=== PATIENT | female | born 1945 | race Caucasian/White ===

== ENCOUNTER 2018-07-10 15:05 | Inpatient (IN) | payer OTHER ==
[~2018-07-10] VITALS: Ht 152.4 cm; Wt 96.3 kg
[~2018-07-10 15:05] MED LIST: ALBU3IS INH; ALBU90OI INH; ATOR80 PO; Aspirin EC81 MG PO; CHOL10002 PO; CLON.1 PO; CLOP75 PO; FURO40 PO; Fenofibrate200 MG PO; Ferrex 150 Plu1 EACH PO; GAVILAX17 GM PO; LANS15EC PO; LOSA50 PO; METF850 PO; METO100ER PO; NIFE10 PO; POTCHL10ER PO; PRED10 PO; TRADJENTA5 MG PO; VASCEPA1 GM PO
[2018-07-10 15:32] LABS: BASOPHILS ABSOLUTE AUTO 0.04 K/mm3 (0.00-0.23); BASOPHILS PERCENT AUTO 1 % (0-2); EOSINOPHILS ABSOLUTE AUTO 0.36 K/mm3 (0.00-0.68); EOSINOPHILS PERCENT AUTO 5 % (0-6); Hematocrit 36.4 % (33.0-51.0); Hemoglobin 11.4 g/dL (11.5-16.0); IMMATURE GRAN ABSOLUTE AUTO 0.04 K/mm3 (0.00-0.10); IMMATURE GRAN PERCENT AUTO 1 % (0-1); LYMPHOCYTES ABSOLUTE AUTO 1.16 K/mm3 (0.84-5.20); LYMPHOCYTES PERCENT AUTO 16 % (21-46); MONOCYTES ABSOLUTE AUTO 0.65 K/mm3 (0.16-1.47); MONOCYTES PERCENT AUTO 9 % (4-13); Mean Corpuscular HGB 26.9 pg (26.0-34.0); Mean Corpuscular HGB Conc 31.3 g/dL (31.5-36.5); Mean Corpuscular Volume 86 fL (80-100); Mean Platelet Volume 12.4 fL (9.1-12.4); NEUTROPHILS ABSOLUTE AUTO 4.91 K/mm3 (1.96-9.15); NEUTROPHILS PERCENT AUTO 69 % (41-73); Platelet Count 237 K/mm3 (150-400); RDW Coefficient Variation 15.6 % (11.7-14.2); RDW Standard Deviation 49.6 fL (35.1-46.3); Red Blood Cell Count 4.24 M/mm3 (3.80-5.20); White Blood Cell Count 7.16 K/mm3 (4.00-11.30)
[2018-07-10 15:56] LABS: Albumin, Blood 1.7 g/dL (3.4-5.0); Albumin/Globulin Ratio 0.3 (0.8-1.8); Bilirubin, Total 0.5 mg/dL (0.1-1.0); Bun/Creatinine Ratio 18.1 (12.0-20.0); Calcium, Blood 10.7 mg/dL (8.5-10.1); Creatinine, Blood 2.65 mg/dL (0.40-1.00); Globulin, Blood 5.5 g/dL (2.2-4.0); Potassium, Blood 4.3 mmol/L (3.5-5.5); Total Protein, Blood 7.2 g/dL (6.4-8.2)
[2018-07-10] MEDS ORDERED: INSULANPEN SC (17:36)
[2018-07-10] MEDS ORDERED: POTCHL20ER PO (17:36)
--- NOTE | 2018-07-11 06:23 | NUR ---
SHIFT SUMMARY PT REPORTS DIFFICULTY SLEEPING & STATES SHE ONLY GOT ROUGHLY 1 HR OF SLEEP. PT IS AOX4 & VSS. PT DENIES PAIN OR N/V. REPORTS SOB ONLY W/EXERTION BUT DENIES ANY WHILE @REST. SPO2 @92-95% ON 2L NC WITH E/U BREATHING. EXPIRATORY WHEEZE HEARD BILATERAL UPPER LUNG LOBES, PT REPORTS COUGHING UP SMALL AMOUNT THICK MUCUS & STATES SOME IS "BLOOD TINGED." CALL LIGHT IS IN REACH & I WILL CONT TO MONITOR PT UNTIL DAY SHIFT RN ASSUMES CARE.
--- NOTE | 2018-07-11 15:44 | NUR ---
PT GAVE CONSENT FOR SECTION REPAIRER TO CARE FOR HER ON 07/12/18
--- NOTE | 2018-07-11 19:34 | NUR ---
SHIFT SUMMARY NO ACUTE CHANGES. PATIENT SCHEDULED FOR BIOPSY OF LUNG TOMORROW. HEPARIN DISCONTINUED AND PT/INR AND PTT ORDERED. PATIENT RECIVED BREATHING TREATMENTS AND CONTINUE TO HAVE SOB ON EXERTION. REPORT GIVEN TO CHRISTA CHACON.
--- NOTE | 2018-07-12 05:40 | NUR ---
SHIFT SUMMARY NO ACUTE CHANGES THIS SHIFT. PT CONTINUES TO HAVE COARSE LUNGS THROUGHOUT AND OCCASSIONAL PRODUCTIVE COUGH. PT REPORTS THAT SHE FEELS LIKE THE MUCUS IS "BREAKING UP". PT AMBULATES WELL TO THE BATHROOM. SOME SOB W/ AMBULATION BUT IMPROVING. REMAINS ON 2 L O2 NC. NO COMPLAINTS OF PAIN. PLAN FOR LUNG BIOPSY TODAY. VSS. PT RESTING IN BED AT THIS TIME.
[2018-07-12 05:48] LABS: International Normalized Ratio 1.11; Prothrombin Time Results 11.7 Sec (9.7-11.5)
--- NOTE | 2018-07-12 08:00 | NUR ---
pt laying in bed watching tv, family member laying in room at bedside. pt is a/ox3, pleasant and cooperative with care, follows commands well, denies pain at this time, lungs are very dim t/o, with occ wheeze noted, hrr, no edema noted, ppp+1, cap refill <3sec, vs stable,a febrile, iv site is clear and patent, btx4, abd round soft nontender, voids without diff, skin c/w/d except under left breast and under left side of panus she has a red rash, nystatin was applied, ha lovelace call light in reach. will be having a lung biopsy at 1100 will keep npo after breakfast.
--- NOTE | 2018-07-12 11:30 | NUR ---
pt left for lung biopsy with ct. via [facility].
--- NOTE | 2018-07-12 19:25 | NUR ---
SHIFT SUMMARY NO ACUTE CHANGES, PATIENT HAD LUNG BIOPSY TODAY. SMALL PNEUMO NOTED AFTER PROCEDURE, PATIENT DENIES SHORTNESS OF BREATH OR DIFFICULTY BREATHING. PATIENT INDEPENDENT TO BATHROOM. REPORT GIVEN TO CHRISTA CHACON.
[2018-07-13 06:08] LABS: Bun/Creatinine Ratio 19.8 (12.0-20.0); Calcium, Blood 10.5 mg/dL (8.5-10.1); Creatinine, Blood 3.08 mg/dL (0.40-1.00); Potassium, Blood 4.4 mmol/L (3.5-5.5)
--- NOTE | 2018-07-13 07:23 | NUR ---
SHIFT SUMMARY A/O X4, ABLE TO MAKE NEEDS KNOWN. COOPERATIVE WITH CARE. CALLS AND ANSWERS QUESTIONS APPROPRIATELY. NO C/O PAIN/DISCOMFORT DURING SHIFT. APPEARED TO REST MUCH OF SHIFT. REMAINS ON 2L VIA NC MAINTAINING >90%. HYPERTENSIVE, HOWEVER APPEARS TO BE ON TREND WITH PREVIOUS PRESSURES. NO ACUTE CHANGES OVERNIGHT. BED IN LOWEST POSITION. CALL LIGHT AND BELONGINGS WITHIN REACH. CONTINUED TO MONITOR OVERNIGHT. REPORT GIVEN TO DAY SHIFT RN.
--- NOTE | 2018-07-13 14:03 | NUR ---
PATIENT TRANSITIONED TO COMFORT CARE. PER CELESTE ROMERO THIS RN PROVIDED PATIENT WITH AN ENEMA, CURRENTLY WAITING FOR PATIENT TO HAVE URGE FOR BM. AT THIS TIME NO URGE. SHE IS RESTING ON HER SIDE. SLEEPING. FAMILY IN AT BEDSIDE. CONTINUING TO CHECK FOR URGE.
--- NOTE | 2018-07-13 14:15 | NUR ---
PATIENT TRANSITIONED TO COMFORT CARE. CURRENTLY HAS AN ENEMA IN PLACE WITH GOAL OF STOOL OUTPUT. FAMILY AT BEDSIDE.
--- NOTE | 2018-07-13 15:28 | NUR ---
SPOKE WITH DR. MCKEON REGARDING MEDICATION PRECAUTION PLACED BY DAVE. STATED TO DISREGARD NOTE, DC OFF OF ORDERS. THIS RN AND PREVIOUS RN HAD BEEN GIVING MEDICATIONS PER EMAR. DR. MCKEON STATED THIS WAS OKAY. PATIENT NEW DIAGNOSIS OF CANCER, PALLIATIVE CARE NURSE NOTIFIED.
--- NOTE | 2018-07-13 16:46 | NUR ---
Pt resting called to assist pt with recent new of lung cancer diagnosis. pt is upseat and angry but showing some good coping. she has a plan she wants to speak with Doctor lia and then make aplan and then advise her son. pt states only family is her son and he has recently had a cardiac event. She has a home and resoureces. She wanted a brief conversation about how to plan and types of treatment. answered her questions briefly. mostly supportive care. advised we can helpwith Advance directive, will and poa. she states she will need all of those things. She is not sure if she will need some help at home. 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 will update hospice spiritual care coordinator may need resources for discharge.
--- NOTE | 2018-07-13 18:41 | NUR ---
SHIFT SUMMARY PATIENT RECENTLY LEARNED ABOUT HER CANCER DIAGNOSIS. WAITING TO TELL HER SON. PALLIATIVE CARE AND HIM SPECIALISTS INVOLVED IN POC. CONSULT OUT TO DR. MATTA. OVERALL IN [facility], CONVERSIVE WITH STAFF.
[2018-07-14 06:03] LABS: Bun/Creatinine Ratio 24.2 (12.0-20.0); Calcium, Blood 10.3 mg/dL (8.5-10.1); Creatinine, Blood 2.97 mg/dL (0.40-1.00); Potassium, Blood 4.8 mmol/L (3.5-5.5)
--- NOTE | 2018-07-14 06:07 | NUR ---
SHIFT SUMMARY A/O X4, ABLE TO MAKE NEEDS KNOWN. COOPERATIVE WITH CARE. CALLS AND ANSWERS QUESTIONS APPROPRIATELY. NO C/O PAIN/DISCOMFORT. C/O COUGH; MEDICATED PER EMAR. REMAINS ON 2L VIA NC MAINTAINING O2 >90%. LUNGS DIMINISHED TO ALL MENON AND COARSE TO THE TOP. RESPIRATIONS EVEN AND EQUAL RISE AND FALL NOTED. HYPERTENSIVE THIS AM, HOWEVER, APPEARS ON TREND WITH PREVIOUS PRESSURES. NO ACUTE CHANGES OVERNIGHT. DID NOT APPEAR TO REST MUCH. BED IN LOWEST POSITION. CALL LIGHT AND BELONGINGS WITHIN REACH. WCTM. REPORT TO ONCOMING RN.
[2018-07-14] MEDS ORDERED: AMLO10 PO (16:53)
[2018-07-14] MEDS ORDERED: DELTASONE20 MG PO (16:57)
[2018-07-14] MEDS ORDERED: LEVO750 PO (16:58)
[2018-07-14] MEDS ORDERED: Pedi-Dri 100,0060 GM TOP (16:59)
[2018-07-14] MEDS ORDERED: ALBU3IS INH (17:00)
[2018-07-14] MEDS ORDERED: ROBITUSSIN COU237 ML PO (17:03)
[2018-07-14] MEDS ORDERED: DULERA 100 MCG/13 GM INH (17:23)
== END 2018-07-14 17:38 | disposition home or self-care (01) | DRG 180 ==
LOC: ER 15:05 → MEDS 17:29
PROVIDERS: Internal Medicine; Physician Assistant; ADMIT Internal Medicine
PROC: 0BBF3ZX Excision of Right Lower Lung Lobe, Percutaneous Approach, Diagnostic (ICD-10-PCS; principal; 2018-07-13)
DX: C34.91 Malignant neoplasm of unspecified part of right bronchus or lung (principal); J18.9 Pneumonia, unspecified organism; N18.4 Chronic kidney disease, stage 4 (severe); J44.1 Chronic obstructive pulmonary disease with (acute) exacerbation; N17.9 Acute kidney failure, unspecified; R91.8 Other nonspecific abnormal finding of lung field; I25.2 Old myocardial infarction; I25.10 Atherosclerotic heart disease of native coronary artery without angina pectoris; I12.9 Hypertensive chronic kidney disease with stage 1 through stage 4 chronic kidney disease, or unspecified chronic kidney disease; Z95.5 Presence of coronary angioplasty implant and graft; G47.33 Obstructive sleep apnea (adult) (pediatric); Z86.73 Personal history of transient ischemic attack (TIA), and cerebral infarction without residual deficits; E11.22 Type 2 diabetes mellitus with diabetic chronic kidney disease; E83.52 Hypercalcemia
CPT/HCPCS: 32405; 36415; 71045; 71046; 71250; 74176; 77012; 80048; 80053; 82947; 83036; 83880; 83970; 84484; 85025; 85610; 85730; 88305; 88341; 88342; 93005; 93010; 94640; 94644; 94667; 94668; 94760; 99285-25; C9113; J1644; J1815; J1956; J7050

== ENCOUNTER 2018-07-15 06:03 | Observation (INO) | payer OTHER ==
[~2018-07-15] VITALS: Ht 160 cm; Wt 94.3 kg
[~2018-07-15 06:03] MED LIST changes: +AMLO10 PO; +DELTASONE20 MG PO; +DULERA 100 MCG/13 GM INH; +INSULANPEN SC; +LEVO750 PO; +POTCHL20ER PO; +Pedi-Dri 100,0060 GM TOP; +ROBITUSSIN COU237 ML PO
[2018-07-15 07:26] LABS: BASOPHILS ABSOLUTE AUTO 0.03 K/mm3 (0.00-0.23); BASOPHILS PERCENT AUTO 0 % (0-2); EOSINOPHILS ABSOLUTE AUTO 0.11 K/mm3 (0.00-0.68); EOSINOPHILS PERCENT AUTO 1 % (0-6); Hematocrit 38.3 % (33.0-51.0); Hemoglobin 11.7 g/dL (11.5-16.0); IMMATURE GRAN ABSOLUTE AUTO 0.06 K/mm3 (0.00-0.10); IMMATURE GRAN PERCENT AUTO 1 % (0-1); LYMPHOCYTES PERCENT AUTO 14 % (21-46); MONOCYTES ABSOLUTE AUTO 0.76 K/mm3 (0.16-1.47); MONOCYTES PERCENT AUTO 7 % (4-13); Mean Corpuscular HGB 27.3 pg (26.0-34.0); Mean Corpuscular HGB Conc 30.5 g/dL (31.5-36.5); Mean Platelet Volume 12.3 fL (9.1-12.4); NEUTROPHILS ABSOLUTE AUTO 7.87 K/mm3 (1.96-9.15); NEUTROPHILS PERCENT AUTO 77 % (41-73); Platelet Count 239 K/mm3 (150-400); RDW Coefficient Variation 15.1 % (11.7-14.2); RDW Standard Deviation 49.4 fL (35.1-46.3); Red Blood Cell Count 4.29 M/mm3 (3.80-5.20); White Blood Cell Count 10.23 K/mm3 (4.00-11.30)
[2018-07-15 07:37] LABS: Albumin, Blood 1.8 g/dL (3.4-5.0); Albumin/Globulin Ratio 0.3 (0.8-1.8); Bilirubin, Total 0.5 mg/dL (0.1-1.0); Bun/Creatinine Ratio 25.6 (12.0-20.0); Calcium, Blood 10.9 mg/dL (8.5-10.1); Creatinine, Blood 2.77 mg/dL (0.40-1.00); Globulin, Blood 5.5 g/dL (2.2-4.0); Potassium, Blood 4.4 mmol/L (3.5-5.5); Total Protein, Blood 7.3 g/dL (6.4-8.2)
[2018-07-15 07:38] LABS: Mean Corpuscular Volume 89 fL (80-100)
--- NOTE | 2018-07-15 12:00 | NUR ---
PT ARRIVED VIA GURNEY FROM ED AT 1130. SLIDE SHEET TRANSFERRED TO BED AND SETTLED IN. SKIN CHECKED WITH BRUISING NOTED TO ARMS AND ABDOMEN. PT REPORTS DISCHARGING FROM HOSPITAL YESTERDAY WITH SON. WHEN SHE GOT HOME AND ATTEMPTED TO STEP ONTO HER RAMP AT HOME SHE WAS UNABLE TO LIFT HERSELF ONTO IT AND FELL BACKWARD REQUIRING PARAMEDICS TO BE CALLED AND COMING CARRY HER INTO HER HOME. REPORTS BEING ABLE TO WALK TO BATHROOM IN THE EVENING WITH HER SONS ASSISTANCE AND THEN SAT IN CHAIR OVER NIGHT AT WHICH TIME SHE WAS UNABLE TO GET OUT OF CHAIR AND STAND CAUSING HER TO CALL AMBULANCE SERVICE AGAIN TO BRING HER BACK TO HOSPITAL. SON AT BEDSIDE SOON AFTER ARRIVAL.
--- NOTE | 2018-07-15 18:29 | NUR ---
SHIFT SUMMARY P.T. IN TO EVALUATE PT THIS AFTERNOON. UP AND AMBULATED WITH A FWW WALKER A SHORT DISTANCE. EXERCISES GIVEN TO PT TO DO AND SHE REPORTS DOING THEM WHILE IN BED. DID NAP THIS AFTERNOON AFTER P.T. WORKED WITH HER. CURRENTLY UP IN RECLINER AFTER USING BSC. 1 PERSON ASSIST WITH GAIT BELT AND FWW. WINDED WITH ACTIVITY.
--- NOTE | 2018-07-16 05:06 | NUR ---
*SHIFT SUMMARY* PATIENT IS ALERT AND ORIENTED. PATIENT WEARING 2L NC TO MAINTATIN OXYGEN SATURATIONS. PT REQUESTED COUGH MEDICINE. ADMINISTERED ORDERED, PATIENT WAS ABLE TO GET SOME SLEEP AFTER MEDICATED. USES BSC WITH 1-2 ASSIST, PT DOES GET MILDLY EXERTED WITH TRANSFERING FROM BED TO BSC. PT STATES SHE FEELS SHE IS GETTING STRONGER BY DOING EXERCISES THAT PT TAUGHT HER AND IS DOING INDEPENDENTLY IN ROOM. CALL LIGHT WITHIN REACH, BED LOWERED AND LOCKED.
--- NOTE | 2018-07-16 18:23 | NUR ---
SHIFT SUMMARY PT UP TO CHAIR FOR MEALS AND USING BSC. REPORTS BEING TIRED THIS EVENING BUT HAS BEEN ABLE TO STAND HERSELF UP FROM CHAIR, BED AND COMMODE WITH NO HELP AND AMBULATE TO DESTINATION USING FWW. SLIGHTLY WINDED AFTER ACTIVITY BUT RECOVERS QUICKLY.
[2018-07-17 05:58] LABS: Hematocrit 35.7 % (33.0-51.0); Hemoglobin 11.4 g/dL (11.5-16.0); Mean Corpuscular HGB 27.4 pg (26.0-34.0); Mean Corpuscular HGB Conc 31.9 g/dL (31.5-36.5); Mean Platelet Volume 12.7 fL (9.1-12.4); Platelet Count 192 K/mm3 (150-400); RDW Standard Deviation 47.7 fL (35.1-46.3); Red Blood Cell Count 4.16 M/mm3 (3.80-5.20); White Blood Cell Count 11.45 K/mm3 (4.00-11.30)
[2018-07-17 06:01] LABS: Mean Corpuscular Volume 86 fL (80-100)
[2018-07-17 06:04] LABS: Bun/Creatinine Ratio 32.2 (12.0-20.0); Calcium, Blood 10.4 mg/dL (8.5-10.1); Creatinine, Blood 2.55 mg/dL (0.40-1.00); Potassium, Blood 4.7 mmol/L (3.5-5.5)
--- NOTE | 2018-07-17 06:04 | NUR ---
*SHIFT SUMMARY* PATIENT IS ALERT AND ORIENTED. ON 2L NC. COUGHED THROUGHOUT THE NIGHT AND REQUESTED THE COUGH MEDICINE, SEE EMAR. SBA TO BSC. USES CALL LIGHT APPROPRIATELY. BED LOWERED AND LOCKED.
--- NOTE | 2018-07-17 17:28 | NUR ---
PATIENT DISCHARGE: PATIENT DISCHARGED/XFR TO SNF ([facility]) THIS SHIFT. MEDICATION RECONCILIATION COMPLETED. PATIENT DEPARTED MEDICAL FLOOR VIA [facility] WHEELCHAIR AT 1720. REPORT CALLED TO BRODERICK CAMERON AT [facility].
== END 2018-07-17 17:15 ==
LOC: ER 06:03 → MEDS 06:04 → ENPENDDIS 07-17 14:30 → MEDS 07-17 17:15
PROVIDERS: Emergency Medicine; ADMIT Internal Medicine
DX: J44.0 Chronic obstructive pulmonary disease with (acute) lower respiratory infection (principal); J18.9 Pneumonia, unspecified organism; J44.1 Chronic obstructive pulmonary disease with (acute) exacerbation; J96.11 Chronic respiratory failure with hypoxia; C34.91 Malignant neoplasm of unspecified part of right bronchus or lung; I13.0 Hypertensive heart and chronic kidney disease with heart failure and stage 1 through stage 4 chronic kidney disease, or unspecified chronic kidney disease; E11.22 Type 2 diabetes mellitus with diabetic chronic kidney disease; N18.4 Chronic kidney disease, stage 4 (severe); I25.10 Atherosclerotic heart disease of native coronary artery without angina pectoris; G47.33 Obstructive sleep apnea (adult) (pediatric); Z95.5 Presence of coronary angioplasty implant and graft; Z86.73 Personal history of transient ischemic attack (TIA), and cerebral infarction without residual deficits; Z87.891 Personal history of nicotine dependence; Z88.5 Allergy status to narcotic agent; Z88.1 Allergy status to other antibiotic agents; Z88.2 Allergy status to sulfonamides; Z91.041 Radiographic dye allergy status; Z91.013 Allergy to seafood; Z79.899 Other long term (current) drug therapy; Z79.82 Long term (current) use of aspirin; Z79.02 Long term (current) use of antithrombotics/antiplatelets; Z79.4 Long term (current) use of insulin
CPT/HCPCS: 36415; 80048; 80053; 82947; 85025; 85027; 94640; 94760; 96372; 97110; 97162; 97530; 99285; G0378; J1650

== ENCOUNTER 2018-09-02 09:15 | Inpatient (IN) | payer OTHER ==
[~2018-09-02] VITALS: Ht 167.6 cm; Wt 96.1 kg
[2018-09-02 09:56] LABS: Hematocrit 37.1 % (33.0-51.0); Hemoglobin 10.7 g/dL (11.5-16.0); Mean Corpuscular HGB 27.5 pg (26.0-34.0); Mean Corpuscular HGB Conc 28.8 g/dL (31.5-36.5); Mean Corpuscular Volume 95 fL (80-100); Mean Platelet Volume 11.8 fL (9.1-12.4); Platelet Count 195 K/mm3 (150-400); RDW Coefficient Variation 15.9 % (11.7-14.2); RDW Standard Deviation 56.8 fL (35.1-46.3); Red Blood Cell Count 3.89 M/mm3 (3.80-5.20); White Blood Cell Count 7.87 K/mm3 (4.00-11.30)
[2018-09-02 10:21] LABS: Albumin, Blood 1.5 g/dL (3.4-5.0); Albumin/Globulin Ratio 0.3 (0.8-1.8); Bun/Creatinine Ratio 24.7 (12.0-20.0); Calcium, Blood 10.1 mg/dL (8.5-10.1); Creatinine, Blood 1.94 mg/dL (0.40-1.00); Globulin, Blood 4.6 g/dL (2.2-4.0); Potassium, Blood 4.4 mmol/L (3.5-5.5); Total Protein, Blood 6.1 g/dL (6.4-8.2)
[2018-09-02 10:22] LABS: BASOPHILS ABSOLUTE MAN 0.15 K/mm3 (0.00-0.23); BASOPHILS PERCENT MAN 2 % (0-2); EOSINOPHILS PERCENT MAN 0 % (0-6); LYMPHOCYTES ABSOLUTE MAN 0.47 K/mm3 (0.84-5.20); LYMPHOCYTES PERCENT MAN 6 % (21-46); MONOCYTES PERCENT MAN 0 % (4-13); NEUTROPHILS ABSOLUTE MAN 7.24 K/mm3 (1.96-9.15); SEG NEUTROPHILS PERCENT MAN 92 % (41-73); TOTAL CELLS COUNTED 100
--- NOTE | 2018-09-02 10:50 | NUR ---
Mckenzie is a 72 year old lady with a history of lung cancer. Her son at the [facility] reports that her cancer is in her lung and in her stomach. She had her first dose of chemo this past Tuesday and has become increasing weak, has a productive cough to blood-tinged sputum with SOB, and falls. This cancer diagnosis has been very recent. She knows it is incurable. Her son called 911 today because she fell and he was unable to pick her up off the floor. She was started on levaquin 250 mg PO daily x7 days yesterday per Dr. Plunkett. She is being admitted from the ER by Dr. Jaramillo. Mckenzie is not currently able to care for herself. She has been living with her son who states that he believes he may not be able to care for her any longer. Discussed code status with Mckenzie and her son. She is currently a DNR, however she would like to be able to continue treatment for her cancer if she is able to. Discussed length of life, vs. qualify of life with treatment and without cancer treatment. She states that she would like to see how she feels in the next couple of days before making any decisions. Will follow up with Mckenzie in the next few days for a review of symptoms and advanced care planning.
--- NOTE | 2018-09-02 12:15 | NUR ---
PT ARRIVED TO ROOM 305 FROM ER VIA GURNEY. PT UNABLE TO STAND, SLID OVER ONTO BED USING SLIDER SHEET. ACCOMPANIED BY SON, FINN. VITAL SIGNS OBTAINED. PT DENIES PAIN AT THIS TIME. ARRIVED WITH LEVAQUIN IV INFUSING TO RT CHEST SITE. PT AND SON ORIENTED TO ROOM AND CALL SYSTEM, CALL PETTIT IN REACH, WILL MONITOR.
--- NOTE | 2018-09-02 18:28 | NUR ---
NO ACUTE CHANGES NOTED SINCE ARRIVAL TO ROOM, WILL CONTINUE TO MONITOR AND REPORT TO ONCOMING RN
--- NOTE | 2018-09-03 02:54 | NUR ---
CHEM BG OF 44 AT 2129. GIVEN OJ. PT CONFUSED COULDN'T ANSWER QUESTIONS. CHEM BG AFTER OJ WAS 69. GIVEN YOGURT AND CAME UP TO 121. HR 118-120'S. NOTIFIED DR NASCIMENTO SHE ORDERED TELE, 1/2 AMP D5O, 5OO LR BOLUS AND D5 1/2 NS @ 100. AFTER AMP CHEM BG 164. DR NASCIMENTO SAID TO HOLD CATAPRES, METOPROLOL AND LANTUS. RR 32 AND O2 WAS 89% AT 4L SO INCREASED O2 TO 5L TO KEEP O2 AT 90%. PT KEPT REPEATING "OK" OVER AND OVER AGIAN AND NOTHING ELSE. TELE SHOWED A FIB @ 122 C OCC PVC'S AND OCC P WAVES PER SAP BASIS. INCONT OF URINE AND HAS NOT GOT OOB. NOTIFIED DR NASCIMENTO OF RESPIRATORY RATE, HR, MENTATION AND ORAL TEMP OF 100.3. SHE CHANGED PT STATUS TO PCU. GAVE PO TYLENOL. REPORT GIVEN TO ERASTO CHACON.
[2018-09-03 03:57] LABS: Hematocrit 31.4 % (33.0-51.0); Hemoglobin 9.2 g/dL (11.5-16.0); Mean Corpuscular HGB 27.5 pg (26.0-34.0); Mean Corpuscular HGB Conc 29.3 g/dL (31.5-36.5); Mean Corpuscular Volume 94 fL (80-100); Mean Platelet Volume 11.6 fL (9.1-12.4); Platelet Count 150 K/mm3 (150-400); RDW Coefficient Variation 16.1 % (11.7-14.2); RDW Standard Deviation 55.2 fL (35.1-46.3); Red Blood Cell Count 3.35 M/mm3 (3.80-5.20); White Blood Cell Count 5.75 K/mm3 (4.00-11.30)
[2018-09-03 04:12] LABS: Bun/Creatinine Ratio 25.1 (12.0-20.0); Calcium, Blood 9.6 mg/dL (8.5-10.1); Creatinine, Blood 1.87 mg/dL (0.40-1.00); Potassium, Blood 4.6 mmol/L (3.5-5.5)
[2018-09-03 04:16] LABS: PCO2 Arterial 40.5 mmHg (35-45); PO2 Arterial 60.3 mmHg (80-100); pH Blood Arterial 7.34 (7.35-7.45)
--- NOTE | 2018-09-03 05:33 | NUR ---
PT ARRIVES TO ICU 11 AT 0254 UNDER PCU STATUS. PT NOTEABLY DYSPNEIC. DOES ONLY SAY, "OK, OK" PT HAS SINCE BEEN ABLE TO ANSWER SOME QUESTIONS. HAS ASKED TO BE REPOSITIONED ONCE. O2 SATURATIONS FLUCTUATE 86-93 PERCENT ON 5 L/M. PT BREATHES MOSTLY THROUGH MOUTH, SO NASAL CANNULA PLACED TO MOUTH WHICH HAS IMPROVED OXYGEN SATURATIONS CONSISITENCY. PT HAS NOT HAD ANY COMPLAINTS OF PAIN. CALL MADE TO DR NASCIMENTO WHEREAS ORDERS RECEIVED. WILL CONTINUE TO MONITOR PT, AND WILL REPORT OFF TO ONCOMING RN.
--- NOTE | 2018-09-03 07:15 | NUR ---
RECEIVED REPORT FROM INES MAURER, AND ASSUMED CARE OF PT.
--- NOTE | 2018-09-03 09:10 | NUR ---
NURSING SUMMARY ALERT, ORIENTED TO SELF AND LOCATION, REPITITVELY SAYING "OK,", GRUNTING, ABLE TO FOLLOW SIMPLE COMMANDS. SR - ST ON THE MONITOR, 98-108, WITH FREQUENT PAC'S AND OCCASSIONAL PVC'S. LUNGS COARSE WITH RHONCHI THROUGHOUT, HARSH/COARSE COUGH WITH OCCASIONAL SCANT AMT OF THICK/CLEAR SPUTUM, YANKAUER AT BEDSIDE, RESPIRATORY TREATMENTS, 5L O2 NC, SATS GREATER THAN 90%, RR 19 -24. HYPOACTIVE BOWEL SOUNDS, POOR APPETITE, DOES NOT WANT TO EAT BREAKFAST, GAVE AM MEDICTIONS CRUSHED IN OATMEAL AND PT WAS ABLE TO CHEW AND SWALLOW WELL. ATTENDS IN PLACE, INCONTINENT OF URINE AND STOOL, ATTENDS CLEAN AT THIS TIME. REPOSITIONED PT TO FOWLERS IN PREPARATION FOR BREAKFAST, WILL CONTINUE TO REPOSTION EVERY 2 HOURS. SKIN WITH SOME BRUISES ON ARMS, SKIN TEAR ON LEFT WRIST, COCCYX REDDENED AND BLANCHABLE, YEAST PER PANNUS, USING MYCOSTATIN POWDER. RIGHT CHEST IV SITE INFUSING D5 1/2 NS AT 100 ML/HR. CHECKING BLOOD SUGARS EVERY 4 HOURS PER INSTRUCTIONS FROM NIGHT RN.
--- NOTE | 2018-09-03 09:23 | NUR ---
DR. GELLER AT BEDSIDE FOR EVALUATION. NEW ORDERS PROVIDED.
--- NOTE | 2018-09-03 10:00 | NUR ---
SON AT BEDSIDE FOR VISIT.
--- NOTE | 2018-09-03 15:52 | NUR ---
GAVE REPORT TO INES RAI, WHOM WILL ASSUME CARE OF PT WHEN TRANSFERRED TO ROOM 355.
--- NOTE | 2018-09-03 16:02 | NUR ---
PATIENT TRANSFERRED TO ROOM 355 VIA HOSPITAL BED WITH IRMA MADDEN.
--- NOTE | 2018-09-03 18:33 | NUR ---
PATIENT TRANFERED FROM ICU THIS SHIFT. SHE CONTINUES TO REPEAT "OK" OR "PLEASE" . WHEN THIS NURSE ASKS WHAT SHE CAN DO FOR THE PATIENT THE PATIENT RESPONDS WITH "GET ME OUT OF HERE" . ALL OTHER COMMUNICATION IS NONSENSICAL . SHE REFUSED MEALS AND IS UNABLE TO EXPRESS HER NEEDS. HER SON WAS CALLED TO INFORM HIM OF HER NEW LOCATION. NO CHANGES TO PATIENTS CONDITION.
--- NOTE | 2018-09-03 23:09 | NUR ---
PT HAS SLIGHT ANXIETY AND HAS FREQUENT NON PRODUCTIVE HARSH COUGH NOTED. THIS NURSE SET UP BEDSIDE SUCTION, PRN USAGE AND CALLED DR CLEMONS (PEST MANAGEMENT SUPERVISOR) REGARDING RESTLESSNESS WITH ORDERS FOR XANAX 1MG PO X 1 ONLY. RESPIRATORY THERAPY NOTIFIED AND WILL EVALUATE FOR POSSIBLE NEBULIZER TREATMENT.
--- NOTE | 2018-09-03 23:23 | NUR ---
RESPIRATORY THERAPY AT SIDE FOR NEBULIZER TREATMENT.
--- NOTE | 2018-09-04 04:45 | NUR ---
72 Y/O OBESE FEMALE RESTED IN SEMI FOWLERS POSITION ALL NIGHT, REPOSITIONED EVERY 2 HOURS BY STAFF. PTS HAD FREQUENT BOUTS COUGHING (HARSH) WITH LUNG SOUNDS WHEEZING THROUGHOUT. PT HAD RESPIRATORY TREATMENTS DURING SHIFT AND RECEIVED XANAX 1 MG X 1 DOSE FOR ANXIETY WITH RELIEF NOTED. PT ABLE TO FOLLOW ALL SIMPLE VERBAL COMMANDS. PT DENIES PAIN OR NAUSEA. PTS BED IN LOW POSITION WITH CALL LIGHT AT SIDE.
[2018-09-04 05:03] LABS: BASOPHILS PERCENT AUTO 0 % (0-2); EOSINOPHILS PERCENT AUTO 0 % (0-6); Hematocrit 32.1 % (33.0-51.0); Hemoglobin 9.3 g/dL (11.5-16.0); IMMATURE GRAN ABSOLUTE AUTO 0.06 K/mm3 (0.00-0.10); IMMATURE GRAN PERCENT AUTO 1 % (0-1); LYMPHOCYTES PERCENT AUTO 5 % (21-46); MONOCYTES PERCENT AUTO 0 % (4-13); Mean Corpuscular HGB 27.3 pg (26.0-34.0); Mean Corpuscular Volume 94 fL (80-100); Mean Platelet Volume 11.4 fL (9.1-12.4); NEUTROPHILS ABSOLUTE AUTO 4.04 K/mm3 (1.96-9.15); NEUTROPHILS PERCENT AUTO 94 % (41-73); Platelet Count 124 K/mm3 (150-400); RDW Coefficient Variation 15.8 % (11.7-14.2); RDW Standard Deviation 54.4 fL (35.1-46.3); Red Blood Cell Count 3.41 M/mm3 (3.80-5.20)
[2018-09-04 05:26] LABS: Magnesium, Blood 2.3 mg/dL (1.6-2.4)
[2018-09-04 05:27] LABS: Albumin, Blood 1.3 g/dL (3.4-5.0); Albumin/Globulin Ratio 0.3 (0.8-1.8); Bilirubin, Total 0.5 mg/dL (0.1-1.0); Bun/Creatinine Ratio 27.6 (12.0-20.0); Calcium, Blood 9.4 mg/dL (8.5-10.1); Creatinine, Blood 1.74 mg/dL (0.40-1.00); Globulin, Blood 4.4 g/dL (2.2-4.0); Potassium, Blood 5.2 mmol/L (3.5-5.5); Total Protein, Blood 5.7 g/dL (6.4-8.2)
[2018-09-04 15:17] LABS: PCO2 Arterial 41.5 mmHg (35-45); PO2 Arterial 75.5 mmHg (80-100); pH Blood Arterial 7.31 (7.35-7.45)
--- NOTE | 2018-09-04 19:39 | NUR ---
IVF'S ONGOING. PROCEDURE NURSE JUST IN THE ROOM TO START A POWERGLIDE FOR HER. THE PATIENT STILL GRUNTS AND MOANS WHEN AWAKE, BUT IS QUIET WHEN ASLEEP. O2 5L. CXR AND ABG DONE THIS AFTERNOON. TELE NSR. LAST CBG WAS UP TO 229. SBP 180'S SO BP MEDICINE GIVEN CRUSHED IN APPLESAUCE. SHE THEN ATE A SHERBET. I FED HER. PO INTAKE VERY POOR. SON VISITED THIS AM. SHE DANGLED WITH PT THIS AM BUT WAS NOT ALERT ENOUGH TO TRY TO STAND.
--- NOTE | 2018-09-05 05:45 | NUR ---
SHIFT SUMMARY PT MOANING/GRUNTING CONSTANTLY, VERY LITTLE SLEEP TONIGHT. AOX2, UNAWARE OF WHY SHE IS IN HOSPITAL OR THE DATE, HOWEVER FOLLOWS DIRECTIONS. SPEECH IS MUMMBLED/GARBLED @TIMES. VSS. DENIES NAUSEA OR SOB @REST, YET APPEARS DYSPNIC. REPORTED PAIN ALLOVER BODY THIS AM & WAS MEDICATED 1X W/TYLENOL PER ORDERS. LUNGS SOUND COURSE T/O LOBES, RESPIRATORY THERAPY CHANGED PT TO 7L O2 W/OXIMIZER LAST NIGHT DUE SPO2 @84% ON 5L NC. HAS A HARSH, MOIST, OCCASIONALLY PRODUCTIVE COUGH. TURNED & REPOSITIONED Q2H TO PREVENT SKIN BREAKDOWN. LAST NIGHT PT STATED, "I JUST WANT TO , HELP ME, JUST MAKE IT STOP." CALL LIGHT IS IN REACH & I WILL CONTINUE TO MONITOR.
--- NOTE | 2018-09-05 10:10 | NUR ---
Rec'd a call from Jeniffer pt's nurse, this morning. Jeniffer states that Mckenzie told the previous shift nurse that she was tired and wanted to . Met with Mckenzie and Toño in her room this morning. Asked Mckenzie if she felt like she was ready to . Mckenzie reports that she wasn't feeling well when she said that and she denies feeling like she wants to at this time. Toño stated that he has never heard Mckenzie expressing wishes to before today. Mckenzie reports that she slept poorly and is very tired. She wants to continue current treatments to improve. If she continues to get weaker or declines she is willing to consider comfort care options at that time. Toño stated that he would like to see how she does over the next couple of days. He stated that whatever decision Mckenzie makes for treatment, he will respect. He states "I've had my mom in my life for 50 years, if it's time for her to go, then I will let her go." PC will continue to follow for symptom management and advanced care planning. JORDYN is working with Toño on placement options for Mckenzie.
--- NOTE | 2018-09-05 13:20 | NUR ---
M<et. in bed her nurse in the room attending the pt. in her needs. Pt. is doing much better encoursged pt and prayed raquel jaramillo.
--- NOTE | 2018-09-05 18:08 | NUR ---
SOB 1800 PT FOUND TO BE DIAPHORETIC AND SOB, O2 TURNED TO 12L TO SUSTAIN 90% OXYMIZER, HOB ELEVATED, EUGENIA IN RT CALLED-GAVE PT BREATHING TX, DR GELLER CALLED, GAVE VERBAL FOR IV LASIX-ADMINISTERED, HR 110-120,S. REMAINED W/PT AFTER ADMIN, HOB AT 60 DEGREES, PTS EYES ARE CLOSED NOW (1811) O2 IS 92 ON 12L, HR 91, WILL CONT TO MONTIOR UNTIL REPORT GIVEN TO CHRISTA RN.
--- NOTE | 2018-09-05 18:39 | NUR ---
AMA [address] TORRES, PT STATED SHE WAS LEAVING AMA CHARGE NURSE REMOVED IV, PT WALKED OUT FOR DC @ 1841.
--- NOTE | 2018-09-06 07:26 | NUR ---
alert, hard to assess orintation due to anxiety r/breathing and sob, rt, breathing treatments and hob elevated, mouth breather, call light in reach, saline locked port in L upper arm walking rounds completed with day staff
[2018-09-06 09:05] LABS: BASOPHILS PERCENT AUTO 0 % (0-2); EOSINOPHILS PERCENT AUTO 0 % (0-6); Hematocrit 36.2 % (33.0-51.0); Hemoglobin 10.7 g/dL (11.5-16.0); Mean Corpuscular HGB 27.8 pg (26.0-34.0); Mean Corpuscular HGB Conc 29.6 g/dL (31.5-36.5); Mean Corpuscular Volume 94 fL (80-100); Mean Platelet Volume 11.9 fL (9.1-12.4); Platelet Count 74 K/mm3 (150-400); RDW Coefficient Variation 15.3 % (11.7-14.2); RDW Standard Deviation 52.8 fL (35.1-46.3); Red Blood Cell Count 3.85 M/mm3 (3.80-5.20); White Blood Cell Count 2.06 K/mm3 (4.00-11.30)
[2018-09-06 09:25] LABS: Magnesium, Blood 2.2 mg/dL (1.6-2.4)
[2018-09-06 09:36] LABS: IMMATURE GRAN ABSOLUTE AUTO 0.01 K/mm3 (0.00-0.10); IMMATURE GRAN PERCENT AUTO 1 % (0-1); LYMPHOCYTES ABSOLUTE AUTO 0.13 K/mm3 (0.84-5.20); LYMPHOCYTES PERCENT AUTO 6 % (21-46); MONOCYTES ABSOLUTE AUTO 0.01 K/mm3 (0.16-1.47); MONOCYTES PERCENT AUTO 1 % (4-13); NEUTROPHILS ABSOLUTE AUTO 1.91 K/mm3 (1.96-9.15); NEUTROPHILS PERCENT AUTO 93 % (41-73)
[2018-09-06 09:38] LABS: Albumin/Globulin Ratio 0.4 (0.8-1.8); Bilirubin, Total 0.9 mg/dL (0.1-1.0); Bun/Creatinine Ratio 38.6 (12.0-20.0); Creatinine, Blood 1.45 mg/dL (0.40-1.00); Globulin, Blood 4.6 g/dL (2.2-4.0); Potassium, Blood 5.2 mmol/L (3.5-5.5); Total Protein, Blood 6.6 g/dL (6.4-8.2)
--- NOTE | 2018-09-06 13:46 | NUR ---
PATIENT ADAMENTLY REFUSING FOR HER POWERGLIDE DRESSING TO BE CHANGED. IT WAS PLACED 09/04/18. I EDUCATED HER ON WHY IT IS IMPORTANT TO CHANGE THESE BUT SHE CONTINUES TO REFUSE. WILL REATTEMPT LATER THIS AFTERNOON. NOTIFIED PATIENTS PRIMARY RN
--- NOTE | 2018-09-06 14:46 | NUR ---
Pt. is in bed , she reports not doing well, gave spiritual and emotional support and offered prayers.
--- NOTE | 2018-09-06 18:32 | NUR ---
SHIFT SUMMARY PT WITH DYSPNEA THIS MORNING ON ASSESSMENT WITH RAPID SHALLOW BREATHING AND UNABLE TO SPEAK MORE THAN 1 OR 2 WORDS WITHOUT NEEDING TO REST A MOMENT. RT SUGGESTED CPAP/BIPAP AND THEN ORDERED BY MD. RESP IMPROVED THROUGH DAY WITH MORE EVEN AND LESS LABORED LUL. PT ALSO REPORTS SHE FEELS LIKE SHE IS BREATHING BETTER. HAS REMAINED ON IT SINCE APPLIED BY RT EARLIER IN DAY. TURNED AND CHANGED REGULARLY. SON AT BEDSIDE EARLIER IN DAY.
[2018-09-07 05:26] LABS: Hematocrit 32.7 % (33.0-51.0); Hemoglobin 9.8 g/dL (11.5-16.0); Mean Corpuscular HGB 27.7 pg (26.0-34.0); Mean Corpuscular Volume 92 fL (80-100); Mean Platelet Volume 12.1 fL (9.1-12.4); RDW Coefficient Variation 15.2 % (11.7-14.2); RDW Standard Deviation 51.6 fL (35.1-46.3); Red Blood Cell Count 3.54 M/mm3 (3.80-5.20); White Blood Cell Count 1.18 K/mm3 (4.00-11.30)
[2018-09-07 05:33] LABS: Platelet Count 43 K/mm3 (150-400)
[2018-09-07 05:54] LABS: Albumin, Blood 1.9 g/dL (3.4-5.0); Albumin/Globulin Ratio 0.5 (0.8-1.8); Bilirubin, Total 0.6 mg/dL (0.1-1.0); Bun/Creatinine Ratio 43.4 (12.0-20.0); Creatinine, Blood 1.43 mg/dL (0.40-1.00); Globulin, Blood 4.2 g/dL (2.2-4.0); Total Protein, Blood 6.1 g/dL (6.4-8.2)
[2018-09-07 05:59] LABS: BASOPHILS PERCENT MAN 0 % (0-2); EOSINOPHILS PERCENT MAN 0 % (0-6); LYMPHOCYTES ABSOLUTE MAN 0.07 K/mm3 (0.84-5.20); LYMPHOCYTES PERCENT MAN 6 % (21-46); MONOCYTES PERCENT MAN 0 % (4-13); SEG NEUTROPHILS PERCENT MAN 94 % (41-73); TOTAL CELLS COUNTED 100
--- NOTE | 2018-09-07 07:31 | NUR ---
ALERT to self and place, bipap working much better than rebrether, call light in reach, saline locked, walking rounds completed with day staff
--- NOTE | 2018-09-07 13:17 | NUR ---
Metpt. lying in bed and the spouse in the room on a visit, pt. seems to be doing much better ,encouraged pt. and prayed for her
--- NOTE | 2018-09-07 18:11 | NUR ---
SHIFT SUMMARY RESPIRATORY THERAPY REDUCED O2 ADMIN TO 6 LPM W/OXYMIZER, INSTEAD OF BIPAP. PT IS SATURATING 94%. PT ADMITTED FOR MARTA/CKD. PT IS DNR. SHE HAS A POSITIONAL POWERGLIDE IN LEFT UPPER ARM. PLATELETS LAB WAS CRITICAL LOW THIS MORNING ( FELT THAT WAS DUE TO CHEMO). PT RECENTLY DX W/LUNG CANCER. PT WAS SLEEPING THROUGHOUT SHIFT. AROUSABLE, BUT DROWSY THROUGHOUT. PT NEEDS MEDS CRUSHED IN APPLESAUCE AND THEN ORAL CARE SHOULD BE PERFORMED. 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 TELEMETRY WAS DC'D TODAY. GUIFFANESEN WAS CHANGED TO LIQUID AT THE ER ORAL TABLETS COULD NOT BE CRUSHED. PT IS INCONTINENT.
--- NOTE | 2018-09-08 05:23 | NUR ---
VSS, AFEBRILE, CONFUSED, PT UNCOOPERATIVE WITH CARE, REFUSING MEDS, PULLS AT TUBES/LINES, OCC. MAKES EYE CONTACT BUT THEN LOOKS AWAY AND WILL NOT TAKE HER MEDS. NO COMPLAINTS. SLEPT FITFULLY, OCC HARSH COUGH, NON-VERBAL AT THIS TIME, WILL REPORT TO ON-COMING SHIFT
[2018-09-08 08:06] LABS: BASOPHILS PERCENT AUTO 0 % (0-2); EOSINOPHILS PERCENT AUTO 0 % (0-6); Hematocrit 32.9 % (33.0-51.0); Hemoglobin 9.8 g/dL (11.5-16.0); IMMATURE GRAN ABSOLUTE AUTO 0.01 K/mm3 (0.00-0.10); IMMATURE GRAN PERCENT AUTO 1 % (0-1); LYMPHOCYTES ABSOLUTE AUTO 0.12 K/mm3 (0.84-5.20); LYMPHOCYTES PERCENT AUTO 6 % (21-46); MONOCYTES ABSOLUTE AUTO 0.01 K/mm3 (0.16-1.47); MONOCYTES PERCENT AUTO 1 % (4-13); Mean Corpuscular HGB 27.1 pg (26.0-34.0); Mean Corpuscular HGB Conc 29.8 g/dL (31.5-36.5); Mean Corpuscular Volume 91 fL (80-100); NEUTROPHILS ABSOLUTE AUTO 1.83 K/mm3 (1.96-9.15); NEUTROPHILS PERCENT AUTO 93 % (41-73); RDW Coefficient Variation 15.5 % (11.7-14.2); RDW Standard Deviation 51.5 fL (35.1-46.3); Red Blood Cell Count 3.62 M/mm3 (3.80-5.20); White Blood Cell Count 1.97 K/mm3 (4.00-11.30)
[2018-09-08 08:13] LABS: Platelet Count 40 K/mm3 (150-400)
[2018-09-08 08:31] LABS: Albumin, Blood 1.8 g/dL (3.4-5.0); Albumin/Globulin Ratio 0.4 (0.8-1.8); Bilirubin, Total 0.5 mg/dL (0.1-1.0); Bun/Creatinine Ratio 53.8 (12.0-20.0); Calcium, Blood 10.2 mg/dL (8.5-10.1); Creatinine, Blood 1.45 mg/dL (0.40-1.00); Globulin, Blood 4.3 g/dL (2.2-4.0); Potassium, Blood 5.1 mmol/L (3.5-5.5); Total Protein, Blood 6.1 g/dL (6.4-8.2)
--- NOTE | 2018-09-08 13:40 | NUR ---
Pt.is in bed mresting and is doing much better.,encouraged and offered prayers and spiritual support.
--- NOTE | 2018-09-08 15:41 | NUR ---
Pt seems to be alert, oriented. She is on bipap and unable to take the mask off at this time due to shortness of breath. Son, Toño is at bedside. Reviewed current illness with patient and Toño. I asked if she would like to be made comfort care at this time. She shakes her head no. She denies pain, anxiety. Spoke to Toño out in the hallway. He is aware of her poor prognosis. He states that he knows the point in which he must make her comfort care, based on his earlier conversations with his mother and her advance directive. He is willing to put her on comfort care once is it evident that she is suffering and she no longer can make her own decisions. Dr. Flores joined us in the hallway and reinforced poor prognosis. Her tumor has enlarged. Pt at high risk for demise without comfort measures order set. This is an expected , she may not make it out of the hospital.
--- NOTE | 2018-09-08 17:09 | NUR ---
SHIFT SUMMARY PT ADMITTED FOR MARTA. DNR. PT'S DIET CHANGED TO MECH-SOFT TODAY IT WAS OBSERVED THAT THE PT WAS WILLING TO EAT MORE FOOD ONLY IF SOFT. CRITICAL LOW PLATELETS LAB THIS MORNING OF 40. PT PULLED AT TUBING ONLY 2X'S TODAY. MEDICATION IS NOW AVAILABLE IN THE [facility] FOR ANXIETY/RESTLESSNESS. PT REFUSED PO MEDS BEFORE THIS SHIFT BUT ACCEPTED THEM DURING THIS SHIFT. PT'S SON ASKED ME FOR A PALLIATIVE CARE CONSULT TO DISCUSS COMFORT CARE. PALLIATIVE CARE ARRIVED AND TALKED W/PATIENT AND SON. NO NEW ORDERS OR CHANGE IN CARE AT THIS TIME.
--- NOTE | 2018-09-09 05:24 | NUR ---
VSS, AFEBRILE, PT SLEPT WELL THIS SHIFT, STILL REFUSING PO MEDS AT TIMES, MAKES PROTESTING SOUNDS DURING PERSONAL CARE, OTHERWISE NO SIGNIFICANT CHANGES NOTED, PT IS STABLE AT THIS TIME. WILL REPORT TO ON-COMING SHIFT.
[2018-09-09 05:33] LABS: BASOPHILS PERCENT AUTO 0 % (0-2); EOSINOPHILS PERCENT AUTO 0 % (0-6); Hematocrit 30.7 % (33.0-51.0); Hemoglobin 9.2 g/dL (11.5-16.0); IMMATURE GRAN ABSOLUTE AUTO 0.01 K/mm3 (0.00-0.10); IMMATURE GRAN PERCENT AUTO 1 % (0-1); LYMPHOCYTES ABSOLUTE AUTO 0.13 K/mm3 (0.84-5.20); LYMPHOCYTES PERCENT AUTO 9 % (21-46); MONOCYTES ABSOLUTE AUTO 0.05 K/mm3 (0.16-1.47); MONOCYTES PERCENT AUTO 3 % (4-13); Mean Corpuscular HGB 27.6 pg (26.0-34.0); Mean Corpuscular Volume 92 fL (80-100); Mean Platelet Volume 12.9 fL (9.1-12.4); NEUTROPHILS ABSOLUTE AUTO 1.31 K/mm3 (1.96-9.15); NEUTROPHILS PERCENT AUTO 87 % (41-73); RDW Coefficient Variation 15.8 % (11.7-14.2); RDW Standard Deviation 53.3 fL (35.1-46.3); Red Blood Cell Count 3.33 M/mm3 (3.80-5.20)
[2018-09-09 05:39] LABS: Platelet Count 37 K/mm3 (150-400)
--- NOTE | 2018-09-09 05:54 | NUR ---
CRIT LAB VALUE: PLT = 37. HOSPITALIST AWARE, NO NEW ORDERS NOTED.
[2018-09-09 05:58] LABS: Albumin, Blood 1.8 g/dL (3.4-5.0); Albumin/Globulin Ratio 0.5 (0.8-1.8); Bilirubin, Total 0.5 mg/dL (0.1-1.0); Bun/Creatinine Ratio 61.1 (12.0-20.0); Creatinine, Blood 1.44 mg/dL (0.40-1.00); Globulin, Blood 3.8 g/dL (2.2-4.0); Potassium, Blood 5.3 mmol/L (3.5-5.5); Total Protein, Blood 5.6 g/dL (6.4-8.2)
--- NOTE | 2018-09-09 18:06 | NUR ---
SHIFT SUMMARY PATIENT SHOWS NO SIGNS OF PAIN OR DISTRESS. PATIENT HAS BEEN RESPONSIVE ONLY TO PHYSICAL STIMULI TODAY. PATIENT UNABLE TO HAVE PO INTAKE OR ORAL MEDS TODAY DUE TO LEVEL OF CONSCIOUSNESS. BIPAP AT 5 LITERS TO MAINTAIN OXYGEN SATURATION OVER 90%. SON AT BEDSIDE MOST OF SHIFT. CALL LIGHT INR EACH, WILL CONTINUE TO MONITOR.
--- NOTE | 2018-09-10 05:39 | NUR ---
SHIFT SUMMARY PT VERY DROWSY THIS EVENING. WAKING APPROX 0300, APPEARING MORE ALERT. STILL ONLY ANSWERING SIMPLE YES OR NO QUESTIONS, AND DOES NOT ALWAYS ANSWER WHEN ASKED. BIPAP ON THROUGHOUT THE NIGHT WITH 7-10 L O2 BLEED IN REQUIRED TO KEEP O2 SATS > 90%. PT INCONTINENT. TURNED PT AND CHANGED ATTENDS NEEDED. REDNESS IN ABD AND GROIN FOLDS, POWDER APPLIED. MEPILEX TO COCCYX CLEAN, DRY, AND INTACT. SMALL SKIN TEARS AND BRUISING SCATTERED THROUGHOUT. LABS DRAWN FROM POWERGLIDE AND CAPS CHANGED. VSS. WILL CONTINUE TO MONITOR.
[2018-09-10 05:40] LABS: BASOPHILS PERCENT AUTO 0 % (0-2); EOSINOPHILS PERCENT AUTO 0 % (0-6); Hematocrit 28.5 % (33.0-51.0); Hemoglobin 8.6 g/dL (11.5-16.0); IMMATURE GRAN ABSOLUTE AUTO 0.08 K/mm3 (0.00-0.10); IMMATURE GRAN PERCENT AUTO 4 % (0-1); LYMPHOCYTES ABSOLUTE AUTO 0.21 K/mm3 (0.84-5.20); LYMPHOCYTES PERCENT AUTO 10 % (21-46); MONOCYTES ABSOLUTE AUTO 0.16 K/mm3 (0.16-1.47); MONOCYTES PERCENT AUTO 8 % (4-13); Mean Corpuscular HGB 27.8 pg (26.0-34.0); Mean Corpuscular HGB Conc 30.2 g/dL (31.5-36.5); Mean Corpuscular Volume 92 fL (80-100); NEUTROPHILS ABSOLUTE AUTO 1.57 K/mm3 (1.96-9.15); NEUTROPHILS PERCENT AUTO 78 % (41-73); NRBC ABSOLUTE 0.03 K/mm3 (0.00-0.02); NRBC Auto 1.5 /100 WBC (0.0-0.2); Platelet Count 69 K/mm3 (150-400); RDW Coefficient Variation 15.9 % (11.7-14.2); RDW Standard Deviation 54.2 fL (35.1-46.3); Red Blood Cell Count 3.09 M/mm3 (3.80-5.20); White Blood Cell Count 2.02 K/mm3 (4.00-11.30)
[2018-09-10 05:42] LABS: Mean Platelet Volume 13.2 fL (9.1-12.4)
[2018-09-10 06:08] LABS: Bun/Creatinine Ratio 65.6 (12.0-20.0); Calcium, Blood 9.7 mg/dL (8.5-10.1); Creatinine, Blood 1.6 mg/dL (0.40-1.00); Potassium, Blood 5.4 mmol/L (3.5-5.5)
[2018-09-10 14:27] LABS: PCO2 Arterial 44.4 mmHg (35-45); PO2 Arterial 72.9 mmHg (80-100); pH Blood Arterial 7.34 (7.35-7.45)
[2018-09-10 15:29] LABS: International Normalized Ratio 1.24; Prothrombin Time Results 12.9 Sec (9.7-11.5)
--- NOTE | 2018-09-10 16:25 | NUR ---
Clinical Visit: Mckenzie does not look well. She is less responsive today. Discussed with son, Toño. At this point, he does not want to change the care plan. Reviewed symptoms, medication, reviewed with nursing.
--- NOTE | 2018-09-10 16:26 | NUR ---
Clinical Visit: Pt appears to be doing a little better today. She is on bipap, but she is able to communicate by nodding or shaking her head. She expresses that she does not want comfort care at this point, denies pain, denies anxiety. Spoke to Jessica, pt's nurse. She is concerned because she has found the pt's POLST form on the physical chart, in which she is a full code. Call placed to son, explained that I would like him to help with a new POLST form when he comes in tomorrow. He is agreeable and confirms DNR status. Reviewed with Dr. Camargo. She states that she is not expecting the patient to go home, she is expected to in the hospital. Toño is aware of this, per discussion taking place yesterday. Will remain available and work on getting a new POLST signed sometime tomorrow.
--- NOTE | 2018-09-10 18:30 | NUR ---
SHIFT SUMMARY PT ALERT, NONVERBAL. PT NODS YES AND NO. PT RESTING IN BED DURING SHIFT. REPOSITIONED FOR COMFORT AND ATTENDS CHANGES. PT ON BIPAP WITH 7L O2 BLEED IN, PT DESATS TO 80'S THIS AM WITH MOVEMENTS. TACHYPNEIC. PT RECEIVING BREATHIGN TREATMENTS PER RT AND MEDICATED X1 FOR AIRHUNGER. PT DENIES PAIN AND N.V T/O SHIFT. PT RECEIVING IV STEROIDS AND ANTIBIOTIC. PT ASP RISK AND REFUSING MEALS. ABG COMPLETED DURING SHIFT. ELEVATED HR, BP AND RESP, DR PASTOR NOTIFIED. PT HAD TEMP THIS AM, MEDICATED WITH 1 CA TYLENOL. PLANS FOR THORACENTESIS TOMORROW. WILL CONTINUE TO MONITOR UNTIL REPORT GIVEN TO ONCOMING RN.
--- NOTE | 2018-09-11 04:39 | NUR ---
SHIFT SUMMARY PT MUCH MORE ALERT THIS EVENING. CONTINUES TO ONLY ANSWER TO SIMPLE YES OR NO QUESTIONS. PLACED OXYMIZER ON INTERMITTENTLY AND DID ORAL CARE. PT ALSO NODING YES WHEN ASKED IF SHE WAS THIRSTY. PT UNABLE TO SUCK THE WATER UP THE STRAW. WATER FED BY TEASPOON AND PT TOLERATED WELL. PT REFUSED ANY FOOD. WHEN NOT DRINKING OR HAVING ORAL CARE DONE BIPAP REMAINED ON THROUGHOUT THE NIGHT. 7 L 02 BLEED IN. O2 SATS IN THE MID 90'S. HR IMPROVED THROUGHOUT THE NIGHT STARTING AT THE 110'S AT START OF SHIFT AND 105 THIS AM. PT INCONTINENT. TURNED AND CHANGED NEEDED. VSS. OTHERWISE NO ACUTE CHANGES. WILL CONTINUE TO MONITOR.
--- NOTE | 2018-09-11 16:06 | NUR ---
Attempted to visit with Mckenzie this afternoon. She is currently resting on bipap with 5 L bleed in O2. She had a thoracentesis done earlier today and fluid was sent for analysis. Toño is not currently visiting. Asked ns to contact PC when he comes in for another visit. Mckenzie did briefly open eyes when her name was called, however she closed her eyes and didn't answer any of my questions. Will allow her to rest at this time. She appears to not be in any distress at this time. PC will plan to visit with pt and her son tomorrow. Fluid from thoracentesis was sent to lab for analysis. Will review lab results when available.
--- NOTE | 2018-09-11 18:31 | NUR ---
SHIFT SUMMARY 72 YR OLD FEMALE. ADMITTED FOR [facility]A. DNR. SHE IS ACHS. 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 POWERGLIDE IS POSITIONAL, RUNNING D5 @ 100 ML/HR. THORACENTESIS GIAN 600 ML OUT. PT IS A LIFT PT. SHE IS INCONTINENT. SHE HAS YEAST IN HER ABDOMINAL, PELVIC FOLDS AND UNDER BREAST. ELEVATED HANDS TODAY DUE TO EDEMA. PT REFUSING MEDS, SOMNOLENT, SLEEPY ALL DAY. ONE WORD ANSWERS IN THE AM, NO RESPONSES THIS EVENING.
[2018-09-12 06:35] LABS: Hematocrit 23.2 % (33.0-51.0); Hemoglobin 6.9 g/dL (11.5-16.0); Mean Corpuscular HGB 27.4 pg (26.0-34.0); Mean Corpuscular HGB Conc 29.7 g/dL (31.5-36.5); Mean Corpuscular Volume 92 fL (80-100); NRBC ABSOLUTE 0.17 K/mm3 (0.00-0.02); NRBC Auto 3.7 /100 WBC (0.0-0.2); Platelet Count 167 K/mm3 (150-400); RDW Coefficient Variation 15.5 % (11.7-14.2); RDW Standard Deviation 51.8 fL (35.1-46.3); Red Blood Cell Count 2.52 M/mm3 (3.80-5.20); White Blood Cell Count 4.55 K/mm3 (4.00-11.30)
[2018-09-12 06:40] LABS: Mean Platelet Volume 13.1 fL (9.1-12.4)
[2018-09-12 07:02] LABS: Albumin, Blood 1.5 g/dL (3.4-5.0); Anion Gap 6 mmol/L (6-16); Blood Urea Nitrogen 127 mg/dL (8-24); Bun/Creatinine Ratio 67.6 (12.0-20.0); CO2, Blood 24 mmol/L (21-32); Chloride, Blood 112 mmol/L (98-108); Creatinine, Blood 1.88 mg/dL (0.40-1.00); Glomerular Filtration Rate 28 (60-); Glucose, Blood 299 mg/dL (70-99); Phosphorus, Blood 2.5 mg/dL (2.5-4.9); Potassium, Blood 5.8 mmol/L (3.5-5.5); Sodium, Blood 142 mmol/L (136-145)
--- NOTE | 2018-09-12 07:23 | NUR ---
Rn summary: Patient has rested all night. Pt has opened eyes to verbal stimuli and touch but has not spoken. Pt shuts eyes almost immediately. Pt is incontinent of urine. Pt is unable to take oral meds, she is not awake enough. Pt has been on Bipap all shift at 5 liters. O2 sats have been in the 92-96% range. Pt does have some yeast under breasts and in groin folds, area cleaned and nystatin applied. Powerglide to CASSANDRA vic easily for blood this am. Iv fluids decreased to 50 cc hr per order at beginning of shift. Pt repositioned. No changes during the night.
--- NOTE | 2018-09-12 11:35 | NUR ---
Visited with Toño and Mckenzie this morning. RT is at bedside and placing her back on the bipap machine per her request. Toño states she is tired. Attempted to include Mckenzie in this conversation and allow her to express her wishes and feelings, however she did not want to engage in the discussion. Toño states "She's getting tired" when asked how he felt she was doing. Toño is open to listening to information about comfort care, Mckenzie did not want to engage. Toño wants to respect Mckenzie's wishes. He stated to me that he knew that she was not going to get any better. He said "We were told she could have 2-5 years to live with treatment." He verbalizes that this will not happen now as she has failed her chemotherapy treatment. Offered emotional support to pt and son. Explained to Toño that if Mckenzie becomes unable to make a decision re: her care that he will need to step in and make a decision for her. He verbalizes understanding of this. PC will continue to follow for symptom management and support for making decisions re: trajectory of care.
--- NOTE | 2018-09-12 14:46 | NUR ---
Pt. is inn bed resting spouse in the room reports that pt. is doing much better, offered prayers for the pt.
--- NOTE | 2018-09-12 18:12 | NUR ---
SHIFT SUMMARY 72 YR OLD FEMALE. DNR. ADMITTED FOR [facility]A. ON 5 LPM BIPAP/OXYMIZER (DEPENDING ON TOLERANCE). PT IS RESPONSIVE INTERMITTENTLY, THEN ONLY YES/NO ANSWERS OR HEAD NODS. MOSTLY SLEEPING. REFUSING FOODS/MEDS. POSITIONAL POWERGLIDE IN LEFT UPPER ARM. 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 LIFT PT - MORBIDLY OBESE. YEAST IN SKIN FOLDS OF ABDOMEN, GROIN, UNDER BREASTS. D5 IS RUNNING AND 50 ML/HR. SHE RECEIVED ONE UNIT OF PRBC TODAY. RESPONDED WELL. SHE IS ACHS AND HAS REQUIRED INSULIN COVERAGE
--- NOTE | 2018-09-13 03:51 | NUR ---
SHIFT SUMMARY PATIENT HAD NO ACUTE CHANGES OBSERVED THIS SHIFT. UNRESPONSIVE WITH EYES OPEN. YES/NO RESPONSE AT TIMES. REFUSING MEDICATION. ON 5L O2 OXIMIZER WITH CONTINUOUS PULSE OXIMETRY STATING IN THE 90"S. POWERGLIDE CASSANDRA INTACT. D5 INFUSING AT 50 mL/HR. CBG 26O, AC/HS. LIFT PATIENT-MORBID OBSESE. CALL LIGHT IN REACH. BED IN LOWEST POSITION. WILL CONTINUE TO MONITOR UNTIL DAY SHIFT NURSE ASSUMES CARE.
[2018-09-13 05:29] LABS: Hematocrit 28.9 % (33.0-51.0); Hemoglobin 8.7 g/dL (11.5-16.0); Mean Corpuscular HGB 27.4 pg (26.0-34.0); Mean Corpuscular HGB Conc 30.1 g/dL (31.5-36.5); Mean Corpuscular Volume 91 fL (80-100); NRBC ABSOLUTE 0.22 K/mm3 (0.00-0.02); NRBC Auto 2.6 /100 WBC (0.0-0.2); Platelet Count 217 K/mm3 (150-400); RDW Coefficient Variation 16.3 % (11.7-14.2); RDW Standard Deviation 54.3 fL (35.1-46.3); Red Blood Cell Count 3.18 M/mm3 (3.80-5.20); White Blood Cell Count 8.38 K/mm3 (4.00-11.30)
[2018-09-13 05:42] LABS: Mean Platelet Volume 13.1 fL (9.1-12.4)
[2018-09-13 06:45] LABS: Albumin, Blood 1.6 g/dL (3.4-5.0); Anion Gap 7 mmol/L (6-16); Blood Urea Nitrogen 120 mg/dL (8-24); Bun/Creatinine Ratio 69.8 (12.0-20.0); CO2, Blood 24 mmol/L (21-32); Chloride, Blood 112 mmol/L (98-108); Creatinine, Blood 1.72 mg/dL (0.40-1.00); Glomerular Filtration Rate 31 (60-); Glucose, Blood 281 mg/dL (70-99); Potassium, Blood 5.3 mmol/L (3.5-5.5); Sodium, Blood 143 mmol/L (136-145)
--- NOTE | 2018-09-13 10:16 | NUR ---
Called to Mckenzie's room by Dr. Camargo to verify that Mckenzie is now choosing to pursue comfort care. Mckenzie is laying in bed and appears fatigued. Toño is at the bedside. Mckenzie was asked if she was wanting to transition to comfort care. She said yes. Her speech is difficult to understand at times, however Toño confirmed that comfort care is what she wants and he will support her choice. Dr. Camargo and this marketing copywriter witnessed Mckenzie's verbal consent for comfort care. Toño also confirmed her wishes. Removed continuous pulse oximitry per pt request and converted IV to SL. Offered to removed the SCDs, however pt stated that she didn't mind having them on. Offered oral care to her and she declined at this time. Her mouth is very dry from breathing with her mouth open. Bedside fan turned on and pt repositioned. She denies any needs at this time and declines meds for comfort at present. Nursing updated and orders for comfort care placed in EMR per Dr. Camargo's request. SHe is currently on an oximizer for comfort.
--- NOTE | 2018-09-13 13:49 | NUR ---
Met pt lying in bed resting pt. is doing much better offered prayers ans support.
--- NOTE | 2018-09-13 15:14 | NUR ---
COMFORT CARE PATIENT ORDERS CHANGED TO COMFORT CARE. PATIENT RESTING WITH SON AT BEDSIDE. PATIENT WEARING OXYMIZER AT 5L. NO SIGNS OF DISTRESS, SHAKES HEAD NO WHEN ASKED IF IN PAIN.
--- NOTE | 2018-09-13 19:25 | NUR ---
SHIFT SUMMARY PATIENT DENIES PAIN, MEDICATED FOR ANXIETY X 2. SON PRESENT AT BEDSIDE FOR MOST OF DAY. PATIENT SHAKES HEAD FOR YES/NO QUESTIONS AND CALLS OUT OCCASIONALLY. SLEEPING MOST OF SHIFT. FREQUENT ORAL CARE GIVEN, PATIENT BREATHES WITH MOUTH OPEN. OXYMIZER AT 5L. REPORT GIVEN TO CHRISTA CHACON.
--- NOTE | 2018-09-14 05:35 | NUR ---
*SHIFT SUMMARY* PATIENT SLEPT THROUGHOUT NIGHT. ORAL CARE PREFORMED SEVERAL TIMES THROUGHOUT NIGHT. PT'S MOUTH IS STILL DRY AND CRACKED. PT SEEMS MORE RELAXED WITH THE IV MORPHINE COMPARED TO ATIVAN. ELEVATED HEAD OF BED TO HELP WITH PT'S BREATHING. WHEN LYING LOW PT GASPS FOR AIR AND COUGHS A LOT. NO OTHER CHANGES.
--- NOTE | 2018-09-14 08:16 | NUR ---
PATIENTS ATTENDS WERE CHECKED AND WERE CLEAN AND DRY AND ORAL CARE DONE.
--- NOTE | 2018-09-14 08:33 | NUR ---
Stopped in to check on Mckenzie. She is alone in her room at this time. She appears to be comfortable. Her RR is even and is unlaobred at present. Edema present to extremities. Mottling noted to forefeet bilat. She does not appear to be in any distress at this time. Allowed her to rest undisturbed. PC will continue to follow for symptom management and family support.
--- NOTE | 2018-09-14 08:46 | NUR ---
COMFORT CARE PATIENT RESTING QUIETLY WITH NO SIGNS OF DISTRESS. ORAL CARE GIVEN, ATROPINE DROPS GIVEN FOR SECRETIONS. PATIENT NOT RESPONSIVE TO VERBAL STIMULI. FLUTTERS EYES WHEN PERSONAL CARE PERFORMED.
--- NOTE | 2018-09-14 10:42 | NUR ---
PATIENT ATTENDS WERE CHANGED AND A BED BATH WAS GIVEN AND A CLEAN GOWN WAS PUT ON AND LINNEN WAS CHANGED.
--- NOTE | 2018-09-14 12:58 | NUR ---
met pt. lying fast asleep , the spouse in the room on a visit prayed for pt.
--- NOTE | 2018-09-14 13:19 | NUR ---
Pt. is fast the spouse in the room on visit, prayed for the pt.
--- NOTE | 2018-09-14 14:21 | NUR ---
PATIENT PATIENT WITH SON AT BEDSIDE. SPIRITUAL CARE MET WITH PATIENT'S SON. INFORMED PATIENT . POSTMORTEM CARE COMPLETED.
--- NOTE | 2018-09-14 15:25 | NUR ---
Mrs. Guerrero's son, Toño, allowed me to provide family life counselor, comfort, and prayer at [facility]. He was tearful, but appropriate. He expressed gratitude for compassionate care by nursing. He admits he does not have a support system--no family or friends. He does see a therapist and promised me he would schedule an appt with her this week. He selected [facility] for arrangements. I gave Goerge my contact information at his request.
== END 2018-09-14 12:33 | DRG 180 ==
LOC: ER 09:15 → MEDS 11:02 → ICUW 09-03 02:50 → MEDS 09-03 15:55 → ENPENDDIS 09-14 12:35
PROVIDERS: Emergency Medicine; Family Medicine; Internal Medicine; ADMIT Internal Medicine
PROC: 30233N1 Transfusion of Nonautologous Red Blood Cells into Peripheral Vein, Percutaneous Approach (ICD-10-PCS; 2018-09-02)
PROC: 5A09557 Assistance with Respiratory Ventilation, Greater than 96 Consecutive Hours, Continuous Positive Airway Pressure (ICD-10-PCS; principal; 2018-09-06)
PROC: 0W993ZZ Drainage of Right Pleural Cavity, Percutaneous Approach (ICD-10-PCS; 2018-09-11)
DX: C34.91 Malignant neoplasm of unspecified part of right bronchus or lung (principal); J96.21 Acute and chronic respiratory failure with hypoxia; D61.810 Antineoplastic chemotherapy induced pancytopenia; C79.89 Secondary malignant neoplasm of other specified sites; J91.0 Malignant pleural effusion; E66.2 Morbid (severe) obesity with alveolar hypoventilation; N17.9 Acute kidney failure, unspecified; E87.1 Hypo-osmolality and hyponatremia; E87.0 Hyperosmolality and hypernatremia; Z51.5 Encounter for palliative care; J44.9 Chronic obstructive pulmonary disease, unspecified; I12.9 Hypertensive chronic kidney disease with stage 1 through stage 4 chronic kidney disease, or unspecified chronic kidney disease; E11.22 Type 2 diabetes mellitus with diabetic chronic kidney disease; N18.3 Chronic kidney disease, stage 3 (moderate); E11.65 Type 2 diabetes mellitus with hyperglycemia; E87.5 Hyperkalemia; I25.10 Atherosclerotic heart disease of native coronary artery without angina pectoris; Z95.5 Presence of coronary angioplasty implant and graft; I25.2 Old myocardial infarction; Z86.73 Personal history of transient ischemic attack (TIA), and cerebral infarction without residual deficits; Z68.35 Body mass index [BMI] 35.0-35.9, adult; E86.0 Dehydration; G47.33 Obstructive sleep apnea (adult) (pediatric); Z87.891 Personal history of nicotine dependence; Z66 Do not resuscitate; E11.649 Type 2 diabetes mellitus with hypoglycemia without coma; W19.XXXA Unspecified fall, initial encounter; Z91.81 History of falling; Z99.81 Dependence on supplemental oxygen; C34.92 Malignant neoplasm of unspecified part of left bronchus or lung; D69.6 Thrombocytopenia, unspecified; T45.1X5A Adverse effect of antineoplastic and immunosuppressive drugs, initial encounter
CPT/HCPCS: 32555; 36415; 36430; 36600; 71045; 80048; 80053; 80069; 82803; 82947; 83615; 83735; 83880; 84132; 84155; 85025; 85027; 85610; 85730; 86850; 86900; 86901; 86923; 93005; 93010; 94640; 94660; 94760; 94762; 96374; 97110; 97161; 97166; 97530; 99285-25; J1650; J1815; J1940; J1956; J2060; J2270; J2920; J2930; J7042; J7050; J7070; J7120; J7512; P9016; P9046